=== PATIENT | male | born 1985 | race Caucasian/White ===

== ENCOUNTER → 2024-03-18 06:31 | Day surgery (SDC) | payer OTHER, SELFPAY | LOC: GI 06:31 | PROVIDERS: ATTENDING PHYSICIAN Internal Medicine Gastroenterology | DX: R10.12 Left upper quadrant pain (principal); K31.89 Other diseases of stomach and duodenum; K29.50 Unspecified chronic gastritis without bleeding; K29.60 Other gastritis without bleeding; B96.81 Helicobacter pylori [H. pylori] as the cause of diseases classified elsewhere | CPT/HCPCS: 43239; 88305; 88341; 88342 ==